=== PATIENT | male | born 1985 | race Caucasian/White ===

== ENCOUNTER 2024-10-19 23:52 | Inpatient (IN) | payer SELFPAY ==
[~2024-10-19] VITALS: Ht 182.9 cm; Wt 70.1 kg
[2024-10-20] VITALS (27 sets, daily range): BP systolic 94–123; BP diastolic 67–84; PULSE 78–121; RESP 15–30; TEMP 97.7–99; O2SAT 96–100
[2024-10-20] MEDS: SODIUM CHLORIDE 0.9% 1000ML 1,000 ML IV ONE ×2 (00:34)
[2024-10-20] MEDS: ONDANSETRON HCL INJ 2MG/ML 2ML 2 MG/ML VIAL IV STA (00:34)
[2024-10-20 00:41] LABS: BASOPHILS # (AUTO) 0.1 (0.0-0.1); BASOPHILS % 0.3 % (0.0-1.0); EOSINOPHILS % 0.1 % (0.0-6.0); HEMATOCRIT 52.3 % (38.2-49.6); HEMOGLOBIN 17.5 g/dL (14.0-18.0); LYMPHOCYTES # (AUTO) 1.3 (1.0-3.2); LYMPHOCYTES % 4.5 % (18.0-39.1); MEAN CORPUSCULAR HEMOGLOBIN 32.3 pg (28-32); MEAN CORPUSCULAR HGB CONC 33.5 g/dL (31-35); MEAN CORPUSCULAR VOLUME 96.5 fL (81-99); MONOCYTES # (AUTO) 2.1 (0.2-0.8); MONOCYTES % 7.1 % (4.4-11.3); NEUTROPHILS # (AUTO) 24.7 (2.1-6.9); NEUTROPHILS % 84.7 % (38.7-80.0); PLATELET COUNT 334 x10e3/uL (140-360); RED BLOOD COUNT 5.42 x10e6/uL (4.3-5.7); RED CELL DISTRIBUTION WIDTH 11.6 % (11.7-14.4); WHITE BLOOD COUNT 29.25 x10e3/uL (4.8-10.8)
[2024-10-20 00:53] LABS: ABG HCO3 5 mmol/L (22-26); ABG PCO2 15 mmHg (35-45); ABG PH 7.14 (7.35-7.45); ABG PO2 122 mmHg (80-105); ABG TCO2 5
[2024-10-20 00:58] LABS: ALBUMIN 5.2 g/dL (3.5-5.0); ALBUMIN/GLOBULIN RATIO 1.3 (0.8-2.0); ANION GAP 30.1 mmol/L (8-16); CALCIUM 10.2 mg/dL (8.4-10.2); CREATININE, SERUM 2.04 mg/dL (0.72-1.25); POTASSIUM 5.1 mmol/L (3.5-5.1); TOTAL PROTEIN 9.3 g/dL (6.5-8.1)
[2024-10-20] MEDS ORDERED: MAGNESIUM SULF 1GRAM/DEXTROSE 100 ML IV PRN (01:15)
[2024-10-20] MEDS: DEXTROSE 5%/0.45% SOD CHL 1,000 ML IV SCH (01:15)
[2024-10-20] MEDS ORDERED: POTASSIUM CHLORIDE 20MEQ/100ML 200 ML IV PRN (01:15)
[2024-10-20] MEDS: INSULIN REGULAR, HUMAN 3ML VL 100 UNIT in SODIUM CHLORIDE 0.9% 100 ML IV SCH (01:34)
[2024-10-20 01:36] LABS: CORONAVIRUS COVID-19 AG NEGATIVE (NEGATIVE); INFLUENZA A AG NEGATIVE (NEGATIVE); INFLUENZA B AG NEGATIVE (NEGATIVE)
[2024-10-20] MEDS ORDERED: ONDANSETRON HCL INJ 2MG/ML 2ML 2 MG/ML VIAL IV PRN (02:00)
[2024-10-20] MEDS ORDERED: SODIUM CHLORIDE FLUSH 10 ML SYR INJ PRN (02:00)
[2024-10-20] MEDS: SODIUM CHLORIDE 0.9% 1000ML 1,000 ML IV SCH (02:20)
[2024-10-20] MEDS ORDERED: AUGMENTIN 500-1 EACH PO (02:56)
[2024-10-20] MEDS ORDERED: HUMULIN R100 UNIT/2 INJ (02:56)
[2024-10-20] MEDS ORDERED: LEVEMIR100 UNIT/1 SQ (02:56)
[2024-10-20 04:36] LABS: LYMPHOCYTES % (MANUAL) 6 % (19-48); MONOCYTES % (MANUAL) 5 % (3.4-9.0); NEUTROPHILS % (MANUAL) 89 % (40-74); RBC MORPHOLOGY COMMENT NORMAL
[2024-10-20 04:37] LABS: PLATELET ESTIMATE ADEQUATE; PLATELET MORPHOLOGY COMMENT NORMAL
[2024-10-20 07:06] LABS: ANION GAP 17.1 mmol/L (8-16); CREATININE, SERUM 1.33 mg/dL (0.72-1.25); MAGNESIUM 1.9 MG/DL (1.3-2.1); POTASSIUM 4.1 mmol/L (3.5-5.1)
[2024-10-20 11:44] LABS: ANION GAP 12.8 mmol/L (8-16); CALCIUM 9.2 mg/dL (8.4-10.2); CREATININE, SERUM 1.17 mg/dL (0.72-1.25); MAGNESIUM 1.9 MG/DL (1.3-2.1); POTASSIUM 3.8 mmol/L (3.5-5.1)
[2024-10-20] MEDS ORDERED: DEXTROSE 50% SYRINGE 50 ML IV PRN (14:45)
[2024-10-20] MEDS: ACETAMINOPHEN 325 MG TAB PO PRN (15:09)
[2024-10-20] MEDS: INSULIN REGULAR, HUMAN 3ML VL 100 UNIT in SODIUM CHLORIDE 0.9% 99 ML IV SCH (15:54)
[2024-10-20 17:15] LABS: ANION GAP 12.7 mmol/L (8-16); CREATININE, SERUM 1.08 mg/dL (0.72-1.25); MAGNESIUM 1.9 MG/DL (1.3-2.1); POTASSIUM 3.7 mmol/L (3.5-5.1)
[2024-10-20] MEDS: INSULIN GLARGINE 100 UNITS/ML VIAL SQ SCH (21:09)
[2024-10-21] VITALS (24 sets, daily range): BP systolic 110–131; BP diastolic 68–93; PULSE 72–92; RESP 16–25; TEMP 97.9–98.6; O2SAT 97–100
[2024-10-21 06:52] LABS: BASOPHILS % 0.2 % (0.0-1.0); EOSINOPHILS % 0.1 % (0.0-6.0); HEMOGLOBIN 14.3 g/dL (14.0-18.0); LYMPHOCYTES # (AUTO) 1.6 (1.0-3.2); LYMPHOCYTES % 12.7 % (18.0-39.1); MEAN CORPUSCULAR HEMOGLOBIN 32.4 pg (28-32); MEAN CORPUSCULAR HGB CONC 34.9 g/dL (31-35); MEAN CORPUSCULAR VOLUME 92.8 fL (81-99); NEUTROPHILS # (AUTO) 10.1 (2.1-6.9); NEUTROPHILS % 78.3 % (38.7-80.0); PLATELET COUNT 218 x10e3/uL (140-360); RED BLOOD COUNT 4.42 x10e6/uL (4.3-5.7); RED CELL DISTRIBUTION WIDTH 11.7 % (11.7-14.4)
[2024-10-21 07:15] LABS: ALBUMIN 3.6 g/dL (3.5-5.0); ALBUMIN/GLOBULIN RATIO 1.4 (0.8-2.0); ANION GAP 13.2 mmol/L (8-16); CALCIUM 9.2 mg/dL (8.4-10.2); CREATININE, SERUM 0.86 mg/dL (0.72-1.25); TOTAL PROTEIN 6.2 g/dL (6.5-8.1)
[2024-10-21 07:20] LABS: POTASSIUM 3.2 mmol/L (3.5-5.1)
[2024-10-21] MEDS: INSULIN LISPRO 100 UNIT/1 ML 3ML VIAL SQ SCH ×3 (14:27→16:36)
[2024-10-21] MEDS: INSULIN GLARGINE 100 UNITS/ML VIAL SQ SCH (20:54)
[2024-10-22] VITALS (8 sets, daily range): BP systolic 105–115; BP diastolic 75–89; PULSE 61–70; RESP 13–14; TEMP 98.1; O2SAT 96–99
[2024-10-22 07:20] LABS: ANION GAP 11.5 mmol/L (8-16); CALCIUM 8.5 mg/dL (8.4-10.2); CREATININE, SERUM 1.02 mg/dL (0.72-1.25); MAGNESIUM 1.8 MG/DL (1.3-2.1); POTASSIUM 3.5 mmol/L (3.5-5.1)
[2024-10-22 08:29] LABS: ABG HCO3 5 mmol/L (22-26); ABG PCO2 15 mmHg (35-45); ABG PH 7.14 (7.35-7.45); ABG PO2 122 mmHg (80-105); ABG TCO2 5
[2024-10-22] MEDS: INSULIN GLARGINE 100 UNITS/ML VIAL SQ ONE (09:55)
== END 2024-10-22 12:10 | disposition home or self-care (01) | DRG 638 ==
LOC: ER 10-20 00:12 → ERHOLD 10-20 01:55 → ICU 10-20 02:41
PROVIDERS: ADMIT Internal Medicine; ATTEND Internal Medicine
PROC: 4A133R1 Monitoring of Arterial Saturation, Peripheral, Percutaneous Approach (ICD-10-PCS; principal; 2024-10-20)
DX: E10.10 Type 1 diabetes mellitus with ketoacidosis without coma (principal); N17.9 Acute kidney failure, unspecified; E86.0 Dehydration; E10.40 Type 1 diabetes mellitus with diabetic neuropathy, unspecified; D72.829 Elevated white blood cell count, unspecified; K04.7 Periapical abscess without sinus; Z59.89 Other problems related to housing and economic circumstances; Z11.52 Encounter for screening for COVID-19; F17.200 Nicotine dependence, unspecified, uncomplicated
CPT/HCPCS: 36415; 36600; 71045; 80048; 80053; 82805; 82948; 83036; 83735; 84443; 84484; 85025; 87040; 93005; 94799; 99252; 99284; J1815; J2405; J2470; J2543; J7030; J7050